=== PATIENT | female | born 1955 | race Two or more races ===

== ENCOUNTER 2018-08-16 11:10 | Emergency (ER) | payer OTHER ==
[~2018-08-16] VITALS: Ht 162.6 cm; Wt 77.1 kg
[2018-08-16] MEDS ORDERED: DEXILANT30 MG (11:39)
[2018-08-16] MEDS ORDERED: WELLBUTRIN SR100 MG (11:39)
== END 2018-08-16 14:39 | disposition home or self-care (01) ==
LOC: ER 11:10
DX: S82.032A Displaced transverse fracture of left patella, initial encounter for closed fracture (principal); W18.39XA Other fall on same level, initial encounter; Y93.89 Activity, other specified; Y92.89 Other specified places as the place of occurrence of the external cause; Y99.8 Other external cause status

== ENCOUNTER 2019-04-11 14:07 | Outpatient (CLI) | payer OTHER ==
[~2019-04-11 14:07] MED LIST: DEXILANT30 MG; WELLBUTRIN SR100 MG
== END 2019-04-11 14:11 | disposition home or self-care (01) ==
LOC: RAD 14:07
DX: R05 Cough (principal)

== ENCOUNTER 2020-03-02 14:41 | Emergency (ER) | payer OTHER ==
[~2020-03-02] VITALS: Ht 165.1 cm; Wt 81.6 kg
== END 2020-03-02 16:54 | disposition home or self-care (01) ==
LOC: ER 14:41
DX: T16.1XXA Foreign body in right ear, initial encounter (principal); X58.XXXA Exposure to other specified factors, initial encounter; Y93.89 Activity, other specified; Y92.89 Other specified places as the place of occurrence of the external cause; Y99.8 Other external cause status

== ENCOUNTER → 2020-05-06 13:42 | Outpatient (CLI) | payer OTHER | END | disposition home or self-care (01) | LOC: LAB 13:42 | PROVIDERS: ATTEND Internal Medicine Cardiovascular Disease | DX: J44.9 Chronic obstructive pulmonary disease, unspecified (principal); A64 Unspecified sexually transmitted disease; A53.9 Syphilis, unspecified ==

== ENCOUNTER → 2022-08-22 | Outpatient (CLI) | payer OTHER | END | disposition home or self-care (01) | LOC: MAMO-SONO 09:00 | PROVIDERS: ATTEND Obstetrics & Gynecology Maternal & Fetal Medicine | DX: Z12.31 Encounter for screening mammogram for malignant neoplasm of breast (principal); N63.0 Unspecified lump in unspecified breast; N64.4 Mastodynia; N60.11 Diffuse cystic mastopathy of right breast; M81.0 Age-related osteoporosis without current pathological fracture ==

== ENCOUNTER 2023-09-26 11:16 | Emergency (ER) | payer OTHER ==
[~2023-09-26] VITALS: Ht 165.1 cm; Wt 86.2 kg
[2023-09-26] MEDS ORDERED: ENALAPRILAT DIHYDRATE 1.25 MG/ML VIAL IV STA (14:11)
[2023-09-26] MEDS ORDERED: hydrOXYzine PAMOATE 25 MG CAPSULE PO STA (14:12)
[2023-09-26 15:12] LABS: HEMATOCRIT 45.6 % (36.0-45.00); MEAN CORPUSCULAR HGB CONC 35.1 g/dl (32.0-36.0); PLATELET COUNT 284 K/uL (150-450); RED BLOOD COUNT 4.86 M/uL (4.00-6.00); RED CELL DISTRIBUTION WIDTH 13.4 % (11.5-14.5)
[2023-09-26 15:32] LABS: BILIRUBIN TOTAL 0.59 mg/dL (0.3-1.2); CALCIUM 9.4 mg/dL (8.5-10.1); CREATININE SERUM 0.87 mg/dL (0.55-1.02); GFR 65.34; GLOBULINA 3.7 G/DL (2.4-3.5); POTASSIUM 3.62 mEq/L (3.5-5.1); TOTAL PROTEIN 7.7 gm/dL (6.4-8.2)
[2023-09-26] MEDS ORDERED: HYDROXYZINE HCL10 MG PO (15:58)
== END 2023-09-26 16:17 | disposition home or self-care (01) ==
LOC: ER 11:16
PROVIDERS: General Practice
DX: R51.9 Headache, unspecified (principal); F41.8 Other specified anxiety disorders; R03.0 Elevated blood-pressure reading, without diagnosis of hypertension

== ENCOUNTER 2024-02-19 13:46 | Outpatient (CLI) | payer OTHER ==
[~2024-02-19 13:46] MED LIST changes: +HYDROXYZINE HCL10 MG PO
== END 2024-02-19 13:49 | disposition home or self-care (01) ==
LOC: MAMO-SONO 13:46
PROVIDERS: ATTEND Internal Medicine Cardiovascular Disease
DX: N60.11 Diffuse cystic mastopathy of right breast (principal); N60.12 Diffuse cystic mastopathy of left breast; Z12.31 Encounter for screening mammogram for malignant neoplasm of breast

== ENCOUNTER → 2024-03-14 | Emergency (ER) | payer OTHER ==
[~2024-03-14] VITALS: Ht 162.6 cm; Wt 81.6 kg
[~2024-03-14] MED LIST changes: +PEPCID AC10 MG PO; +TYLENOL SINUS1 EAC3 PO
== END | disposition home or self-care (01) ==
LOC: ER 12:14
DX: R53.81 Other malaise (principal); J32.9 Chronic sinusitis, unspecified; I10 Essential (primary) hypertension

== ENCOUNTER 2024-05-21 09:01 | Emergency (ER) | payer OTHER ==
[~2024-05-21] VITALS: Ht 162.6 cm; Wt 81.6 kg
[2024-05-21] MEDS ORDERED: KETOROLAC TROMETHAMINE 60 MG VIAL IM STA (09:32)
== END 2024-05-21 11:59 | disposition home or self-care (01) ==
LOC: ER 09:02
DX: M25.562 Pain in left knee (principal); I10 Essential (primary) hypertension

== ENCOUNTER 2025-07-21 12:47 | Outpatient (CLI) | payer OTHER | END 2025-07-21 12:53 | disposition home or self-care (01) | LOC: RAD 12:47 | DX: R06.02 Shortness of breath (principal) ==

== ENCOUNTER 2025-07-22 14:38 | Outpatient (CLI) | payer OTHER | END 2025-07-22 14:43 | disposition home or self-care (01) | LOC: MAMO-SONO 14:38 | PROVIDERS: ATTEND Obstetrics & Gynecology | DX: N60.11 Diffuse cystic mastopathy of right breast (principal); N60.12 Diffuse cystic mastopathy of left breast; Z12.31 Encounter for screening mammogram for malignant neoplasm of breast ==